=== PATIENT | female | born 1985 | race Caucasian/White ===

== ENCOUNTER 2022-10-24 14:40 | Emergency (ER) | payer SELFPAY ==
[~2022-10-24] VITALS: Ht 157.5 cm; Wt 68.0 kg
[2022-10-24] MEDS ORDERED: KETOROLAC 60MG/2ML VIAL IM STA (15:11)
[2022-10-24] MEDS ORDERED: TETANUS, DIPHTHERIA, PERTUSSIS VAC/PF 0.5ML (>10YR OLD) IM ONE (15:15)
[2022-10-24] MEDS ORDERED: AMOXICILLIN/POTASSIUM CLAVULANATE 875/125MG TAB PO ONE (15:30)
[2022-10-24] MEDS ORDERED: ACETAMINOPHEN WITH CODEINE 300/30MG TABLET PO STA (15:45)
[2022-10-24] MEDS ORDERED: T3 PO (16:44)
[2022-10-24] MEDS ORDERED: NAPR-681 PO (16:44)
[2022-10-24] MEDS ORDERED: AMOX1TAB16 PO (16:44)
[2022-10-24] MEDS ORDERED: BACITRACIN ZINC OINT UDPKT TOP ONE (16:45)
[2022-10-24 17:30] VITALS: BP 127/75
== END 2022-10-24 17:37 | disposition home or self-care (01) ==
LOC: ER 14:54
DX: S51.852A Open bite of left forearm, initial encounter (principal); S50.811A Abrasion of right forearm, initial encounter; W54.0XXA Bitten by dog, initial encounter; Y93.89 Activity, other specified; Y92.89 Other specified places as the place of occurrence of the external cause; Y99.8 Other external cause status
CPT/HCPCS: 73090; 73590; 90471; 90715; 96372; 99284; J1885; Z7610